=== PATIENT | female | born 1975 | race Hispanic/Latino ===

== ENCOUNTER 2022-11-27 10:52 | Emergency (ER) | payer BC ==
[~2022-11-27] VITALS: Ht 154.9 cm; Wt 64.4 kg
[~2022-11-27 10:52] MED LIST: PERCOCET 5-3251 EACH PO
[2022-11-27] MEDS ORDERED: AMOX TR-K CLV1 EAC1 PO (13:37)
[2022-11-27] MEDS ORDERED: HYDROCODON-ACE1 EA10 PO (13:37)
[2022-11-27 14:06] VITALS: BP 143/86
== END 2022-11-27 14:06 | disposition home or self-care (01) ==
LOC: ED 10:52
DX: K57.32 Diverticulitis of large intestine without perforation or abscess without bleeding (principal); Z88.8 Allergy status to other drugs, medicaments and biological substances
CPT/HCPCS: 36415; 74177; 80053; 81001; 83605; 83690; 84703; 85025; 96375; 99284-25; J1170; J2405; J2543; Q9967